=== PATIENT | male | born 1975 | race Caucasian/White ===

== ENCOUNTER → 2017-12-10 | Outpatient (CLI) | payer BC ==
[2017-12-10 08:53] LABS: Appearance,Urine Clear (Clear); Bilirubin,Urine Negative (Negative); Blood,Urine Negative (Negative); Color,Urine Yellow; Glucose,Urine (UA) Negative (Negative); Ketones,Urine Negative (Negative); Leukocyte Esterase,Urine Negative (Negative); Nitrite,Urine Negative (Negative); PH, Urine 6.5 (5.0-8.0); Protein,Urine Negative (Negative); Specific Gravity,Urine 1.021 (1.001-1.035); Urobilinogen,Urine <2.0 mg/dL (<2.0)
[2017-12-10 08:54] LABS: HCT 44.1 % (39.0-53.0); HGB 14.6 gm/dL (13.0-17.5); MCH 30.1 pg (25.0-35.0); MCHC 33.1 g/dL (31.0-37.0); MCV 90.9 fL (80.0-100.0); Mean Platelet Volume 6.5; Platelet Count 286 k/uL (150-450); RBC 4.85 m/uL (4.30-5.90); WBC 3.6 k/uL (3.8-10.6)
[2017-12-10 09:24] LABS: ALT 34 U/L (21-72); AST 41 U/L (17-59); Albumin 4.5 g/dL (3.5-5.0); Alkaline Phosphatase 46 U/L (38-126); Anion Gap 9 mmol/L; Blood Urea Nitrogen 21 mg/dL (9-20); Calcium 9.7 mg/dL (8.4-10.2); Carbon Dioxide 29 mmol/L (22-30); Chloride 101 mmol/L (98-107); Cholesterol 250 mg/dL (<200); Glucose 92 mg/dL (74-99); HDL Cholesterol 101 mg/dL (40-60); LDL Cholesterol,Calculated 137 mg/dL (0-99); Potassium 4.5 mmol/L (3.5-5.1); Sodium 139 mmol/L (137-145); Total Bilirubin 0.9 mg/dL (0.2-1.3); Total Protein 7.3 g/dL (6.3-8.2); Triglycerides 60 mg/dL (<150)
[2017-12-10 09:36] LABS: T4, Free (Free Thyroxine) 0.68 ng/dL (0.78-2.19)
--- NOTE | 2017-12-10 10:42 | XR ---
EXAMINATION TYPE: XR chest 2V DATE OF EXAM: 12/10/2017 COMPARISON: NONE HISTORY: Chest pain TECHNIQUE: Frontal and lateral views of the chest are obtained. FINDINGS: There is no focal air space opacity. No evidence for pneumothorax. No pleural effusion. The cardiac silhouette size is within normal limits. The osseous structures are grossly intact. IMPRESSION: 1. No acute cardiopulmonary process.
== END | disposition home or self-care (01) ==
LOC: LABWHC1 08:25
PROVIDERS: ATTEND Internal Medicine
DX: Z00.00 Encounter for general adult medical examination without abnormal findings (principal); I11.9 Hypertensive heart disease without heart failure; E78.2 Mixed hyperlipidemia; K21.0 Gastro-esophageal reflux disease with esophagitis; R35.0 Frequency of micturition
CPT/HCPCS: 36415; 71046; 80053; 80061; 81003; 82272; 84439; 84443; 85027

== ENCOUNTER → 2017-12-31 | Outpatient (CLI) | payer BC ==
--- NOTE | 2017-12-31 20:23 | XR ---
EXAMINATION TYPE: XR hand complete RT DATE OF EXAM: 12/31/2017 COMPARISON: NONE HISTORY: 42-year-old male with hand pain TECHNIQUE: 3 views FINDINGS: Impacted and angulated, foreshortened healed fracture deformity of the fifth metacarpal shaft. Additi onal impacted and angulated healed fracture deformity of the fourth metacarpal neck. No acute fractur e, subluxation, or dislocation seen. IMPRESSION: Prominently impacted and angulated healed boxer's fracture. Additional impacted, angulated, and heale d fracture deformity at the fourth metacarpal neck with overall less foreshortening compared to the f ifth metacarpal.
== END | disposition home or self-care (01) ==
LOC: RADXRMAIN 12:24
PROVIDERS: ATTEND Internal Medicine
DX: M19.90 Unspecified osteoarthritis, unspecified site (principal)

== ENCOUNTER → 2018-05-20 | Outpatient (CLI) | payer BC ==
[2018-05-20 17:46] LABS: Cholesterol 232 mg/dL (0-200); Triglycerides <50.0 mg/dL (0.0-149.0); VLDL Calculation 9.98 mg/dL (5.00-40.00)
== END | disposition home or self-care (01) ==
LOC: LABWHC1 08:56
PROVIDERS: ATTEND Internal Medicine
DX: E78.2 Mixed hyperlipidemia (principal)
CPT/HCPCS: 36415; 80061